=== PATIENT | female | born 1935 | race Caucasian/White ===

== ENCOUNTER 2016-09-15 10:25 | Outpatient (CLI) | payer MEDICARE | END 2016-09-15 10:26 | disposition home or self-care (01) | LOC: VAS 10:25 | PROVIDERS: ATTEND Internal Medicine Hematology & Oncology | DX: M79.661 Pain in right lower leg (principal); M79.89 Other specified soft tissue disorders ==

== ENCOUNTER 2016-10-14 09:54 | Outpatient (CLI) | payer MEDICARE ==
--- NOTE | 2016-10-14 15:52 | PET Report ---
PET/CT:10/14/16 09:54:00 CLINICAL: Breast cancer staging. RADIOPHARMACEUTICAL: 13.38mCi F18-FDG. COMPARISON: None. TECHNIQUE- Following intravenous injection of F-18 FDG and an approximately 60 minute uptake period, CT and PET images from the mid skull to the upper thighs were acquired with the patient in the fasted state. No contrast was administered. The CT protocol used for this PET CT study is designed for attenuation correction and anatomic localization of PET abnormalities. This inspector circuitry negative CT is not desired to produce and cannot replace, [id number] diagnostic CT scans with specific imaging protocols for different body parts and indications. Plasma glucose the time of this test: 145g/dl. The standardized uptake values (SUV) are normalized to patient body weight and indicate the highest activity concentration (SUV max) in a given disease site. FINDINGS: Brain--Physiologic FDG uptake in the visualized regions of the brain. Neck--Physiologic FDG uptake . Focal FDG uptake in the right larynx with SUV 5.5. However, no mass is identified. The uptake is at the lateral aspect of the thyroid cartilage. Chest--Physiologic FDG uptake in mediastinal blood pool and myocardium. Status post right mastectomy. A heterogeneous low density non-FDG avid mass or collection of the left breast measures 15.3 cm transverse dimension by 6.3 cm craniocaudal dimension by 8.2 cm AP dimension. This may be a breast implant with a low-density capsule or a large seroma. There is no distinct left nipple identified. Lungs--No abnormal uptake. No pulmonary nodule or mass. Pleura/pericardium--No abnormal uptake. Thoracic nodes--No abnormal uptake. A non-FDG avid 1.4 x 1.3 cm left axillary lymph node. Hepatobiliary--No abnormal uptake. Liver background SUV mean, as a reference for comparing FDG studies, is 4.7 . No liver mass. Spleen--No abnormal uptake. Pancreas--No abnormal uptake. Adrenal Glands--No abnormal uptake. Kidneys/Ureters/Bladder--No abnormal uptake. Abdominopelvic Nodes--No abnormal uptake. Bowel/Peritoneum/Mesentery--Moderate diverticulosis of the entire colon. Inflammatory changes in the mesentery of the proximal transverse colon and abnormal FDG uptake with SUV 6.0. The focus of FDG uptake measures approximately 3 cm but there is no distinct mass. Pelvic organs--No abnormal uptake. Bones/Soft Tissues--No abnormal uptake. No suspicious bone lesions. IMPRESSION- 1. No evidence of pulmonary, hepatic, vanessa or skeletal metastasis. 2. Questionable large seroma of the left breast. This may be an implant but it has an unusual appearance if it is an implant. 3. Probable diverticulitis of the proximal transverse colon and benign FDG uptake. Recommend further evaluation with CT Abdomen and Pelvis with IV and oral contrast.
== END 2016-10-14 09:55 | disposition home or self-care (01) ==
LOC: PET 09:54
PROVIDERS: ATTEND Internal Medicine Hematology & Oncology
DX: C50.411 Malignant neoplasm of upper-outer quadrant of right female breast (principal); K57.30 Diverticulosis of large intestine without perforation or abscess without bleeding; Z90.11 Acquired absence of right breast and nipple
CPT/HCPCS: 78815; 82962; A9552

== ENCOUNTER 2016-12-27 10:51 | Outpatient (CLI) | payer MEDICARE ==
--- NOTE | 2016-12-27 11:29 | Mammography Report ---
BONE DENSITY STUDY: Postmenopausal osteoporosis DEFINITIONS: BMD = Bone Mineral Density T-score = BMD related to mean peak bone mass of young adult (mean expressed in Standard Deviation) Z-score = Age matched BMD expressed in SD World Health Organization (WHO) Diagnostic Criteria Normal T-score > -1 SD Osteopenia T-score between -1 and -2.4 SD Osteoporosis T-score -2.5 SD or below FINDINGS: The weighted average BMD of lumbar spine L1-L4 is 1.069 with a T-score of -0.7. The weighted average BMD of the left hip is 0.959 with a T-score of -0.5. BMD in the femoral neck is 0.787 with a T. value score of -1.2. IMPRESSION: The patient's average T-score is diagnostic for normal bone density and low relative risk for fracture. NOTE: BMD is not the only risk factor for fracture; also consider factors such as the patient's age, risk of falling, previous osteoporotic fracture, family history of osteoporotic fractures, current smoker, and low body weight. Tomlinson's triangle is a region of interest in femur, predominantly of trabecular bone. It is not a true anatomic site, and [facility] does not recommend its use clinically.
== END 2016-12-27 10:52 | disposition home or self-care (01) ==
LOC: SPVWC 10:51
PROVIDERS: ATTEND Internal Medicine Hematology & Oncology
DX: Z13.820 Encounter for screening for osteoporosis (principal); Z78.0 Asymptomatic menopausal state; Z79.811 Long term (current) use of aromatase inhibitors
CPT/HCPCS: 77080

== ENCOUNTER 2019-05-03 10:39 | Outpatient (CLI) | payer MEDICARE ==
--- NOTE | 2019-05-03 14:10 | PET Report ---
PET/CT HISTORY: C50.411. Breast cancer restaging exam, right-sided breast cancer TECHNIQUE: The patient's fasting blood glucose was 91. The patient weighed 252 lbs. The patient wa s injected with 15.24 mCi of FDG in the left hand at 7:43 AM and imaging was started at 8:28 AM. The patient was imaged from the skull base to the thighs. COMPARISON: PET scan from 10/14/2016 FINDINGS: FDG findings: No abnormal FDG uptake is identified within the chest, abdomen, or pelvis. Non-FDG findings: There is a stable 3 mm subpleural nodule in the right upper lobe on image #63 and a nother in the anterior aspect of the right upper lobe on image #76. There is no new significant incid ental findings in the chest, abdomen, or pelvis. IMPRESSION: Stable 3 mm nodules in the right lung over the past 2.5 years. Otherwise unremarkable [place] kemp Signer Name: Jacob Gary MD Signed: 05/03/2019 2:06 PM Workstation Name: [id number]
== END 2019-05-03 10:40 | disposition home or self-care (01) ==
LOC: PET 10:39
PROVIDERS: ATTEND Internal Medicine Hematology & Oncology
DX: C50.411 Malignant neoplasm of upper-outer quadrant of right female breast (principal)
CPT/HCPCS: 78815; 82962; A9552